=== PATIENT | female | born 1990 | race Caucasian/White ===

== ENCOUNTER 2017-02-05 18:26 | Emergency (ER) | payer OTHER ==
[~2017-02-05] VITALS: Ht 154.3 cm; Wt 56.8 kg
[2017-02-05 18:33] VITALS: BP 111/78; PULSE 87; RESP 15; O2SAT 100
--- NOTE | 2017-02-05 19:52 | ED.REPORT ---
HPI-Dental/Mouth Prob Date of Service Feb 05, 2017 ED Provider: Dr. Judd Kauffman MD A 26 year old female with a history of heroin abuse, hepatitis C and liver cirrhosis presents to the ED complaining of right facial swelling that began 2 weeks ago. Patient initially noticed a dental abscess 2 weeks ago and visited [facility] who drained a small amount from the area and prescribed her Augmentin. The abscess reappeared 2 days ago and has become increasingly large and painful. Patient last used heroin this morning. Nursing Notes Stated Complaint: POSSIBLE JAW INFECTION Chief Complaint: General Complaint Nursing Notes Reviewed: Yes Allergies: Coded Allergies: Pertussis Vaccines (Verified Allergy, Intermediate, as a child, 02/05/17) doxycycline (Verified Allergy, Intermediate, Nausea,Vomiting, 02/05/17) latex (Verified Allergy, Intermediate, Rash, 02/05/17) morphine (Verified Allergy, Intermediate, Hives, 02/05/17) hives, throat feels like it is on fire General Time Seen by MD: 19:51 Chief Complaint Jaw swelling Hx Obtained From: Patient Arrived By: Walk-in Onset Occurred: More than a week ago... (2 weeks) Symptom Duration: Since onset Location: : Tooth upper R lat incisor Quality: Painful Radiation: : Does not radiate Severity: Current: Mild Severity: Maximum: Moderate Pertinent Negative: Pt denies other symptoms Recent Healthcare: No recent hospitalization, Recent doctor visit Past Medical History Past Medical History Hepatitis C IV heroin abuse Liver cirrhosis Past Surgical History None reported. Smoking History Unknown if Ever Smoker Social History Drug Use: IV drugs Other Social History: Good social support, Local resident Ambulatory Status Independent Review of Systems Pain and swelling to the right jaw Constitutional: Denies: Chills, Fever Ears / Nose / Throat: Reports: Mouth pain, Toothache (dental abscess) GI: Denies: Nausea, Vomiting Complete sys rev & neg: except as marked. Physical Exam Initial Vital Signs Vital Signs (First) Date Time Temp Pulse Resp B/P Pulse Ox O2 Delivery O2 Flow Rate FiO2 02/05/17 18:33 36.4 87 15 111/78 100 Room Air Initial VS: Reviewed Extremities: Vascular intact, Neuro intact, No swelling, No tenderness Skin: Warm, Dry, No cyanosis Neurologic: Alert, Oriented, Nonfocal ENT: Atraumatic, Airway patent Dental / Gums: Positive: Dental abscess (periapical abscess ) ENT: Swelling to the angle of the R mandible no Misael's angina Neck: Atraumatic, Supple General/Constitutional: Awake, Alert, No acute distress Head / Eyes: Atraumatic, Normocephalic, PERRL Respiratory / Chest: Atraumatic, No respiratory distress Interpretation & Diagnostics Lab Results Interpretation Test 02/05/17 20:25 Hold Purple Top Tube Received (Received) Hold Blue Top Tube Received (Received) Hold [place] Top Tube Received (Received) Hold [place] Top Tube Received (Received) Re-Eval/Medical Decision Med Decision/Clinical Course Patient is very tolerant to the antibiotics. She declined incision and drainage. Her pain was treated with a dose of oxycodone. At discharge she looked well. I strongly recommended a chest follow-up in 24 hours. Dental referral also given. Encouraged her to stop abusing heroin. Re-Evaluation/Progress : Time of Eval: 20:40 Re-Evaluation/Progress Note: Patient is rechecked. She is informed of her lab results and diagnosis. All of the patient's questions are addressed. She understands and agrees with the treatment plan. Counseled Regarding: Diagnosis, Lab results, Need for follow-up, When/why to return to ED Discharge & Departure Primary Impression: Dental infection Disposition: Home Discharge Condition All VS Reviewed: Yes Condition: Improved Patient Instructions: Dental Abscess (ED) Additional Instructions: Thank you for trusting us with your care this evening. Your examination is reassuring that your symptoms are likely due to a dental abscess and you may require surgery to resolve the abscess. Please return to the emergency department tomorrow unless your symptoms have completely resolved. I would like to perform and incision and drainage procedure to help relieve your pain. Take Augmentin twice daily to completion. I highly recommend you schedule an appointment with a dentist in the next week. See referral for dentist. Please do not use any sedatives as you have received pain medication in the ED this evening. Please return to the ED if you begin to experience any new or worsening symptoms including any high fever, chills, pustule drainage, worsening pain or swelling. Referrals: [facility] [employer] Sc[facility] Attestation Portions of this note were transcribed by Leticia Chen. I, Dr. Kauffman personally performed the history, physical exam and medical decision-making; I reviewed and confirmed the accuracy of the information in the transcribed note. Signed by: Ganga Miller, 02/05/17 [id number]. Judd Kauffman DO Feb 05, 2017 19:52 LETICIA CHEN Feb 05, 2017 19:57
[2017-02-05] MEDS ORDERED: DEXAMETHASONE IV ONE (20:05)
[2017-02-05] MEDS ORDERED: Ampicillin-Sulbactam Inj 3,000 MG in 0.9% Sodium Chloride 100 ML IV ONE (20:05)
[2017-02-05] MEDS ORDERED: SODIUM CHLORIDE PHA MIX 0.9% IV ONE (20:05)
== END 2017-02-05 22:03 | disposition home or self-care (01) ==
LOC: SED 18:26
DX: K04.7 Periapical abscess without sinus (principal); F11.10 Opioid abuse, uncomplicated; B19.20 Unspecified viral hepatitis C without hepatic coma; K74.60 Unspecified cirrhosis of liver; Z88.1 Allergy status to other antibiotic agents; Z88.5 Allergy status to narcotic agent; Z88.7 Allergy status to serum and vaccine; Z91.040 Latex allergy status
CPT/HCPCS: 96365; 96375; 99284; J0295; J1100